=== PATIENT | male | born 1965 | race Caucasian/White ===

== ENCOUNTER 2022-09-16 06:38 | Observation (INO) ==
--- NOTE | 2022-09-16 08:12 | History & Physical Bridge Note ---
Date of Service September 16, 2022 History & Physical Bridge Note I have examined the patient, reviewed the History & Physical and in the interval since the performance of the History & Physical I have noted the following changes of clinical significance: no changes noted
--- NOTE | 2022-09-16 08:12 | Pre Anesthesia Assessment ---
Date of Service September 16, 2022 Pre Sedation Assessment Vital Signs Temp Pulse Resp BP Pulse Ox O2 Del Method 09/16/22 07:11 98.2 F 58 L 16 128/90 94 Room Air Cardiovascular RRR, no murmur, no edema Respiratory normal respiratory effort, lungs clear to auscultation Pre-Sedation Airway Assessment Smoking Status: Former smoker Hx Sleep Apnea: No Short, Thick Neck: No Thyromental Distance: > or= 3.5 Finger Breadths Oral Cavity: + Dental Abnormalities Mallampati Class: III ASA: ASA3 NPO Status Date of Last Intake of Fluids: 09/16/22 Time of Last Intake of Fluids: 20:00 Date of Last Intake of Solid Food: 09/15/22 Time of Last Intake of Solid Foods: 20:00 Procedure Planning Contraindications for Sedation: none Current Medications Reviewed: Yes Notes The planned sedation has been discussed with the patient. Informed Consent was obtained. I have identified the patient, determined the appropriateness of sedation and have assessed the patient immediately prior to the procedure. All medicine(s) and interventions are by my order.
[2022-09-16] MEDS ORDERED: MIDAZOLAM HCL 1 MG/ML 2ML VIAL ONE (08:51)
[2022-09-16] MEDS ORDERED: HEPARIN (PORCINE) 1000 UNIT/ML 10 ML (CATH LAB USE ONLY) ONE (08:51)
[2022-09-16] MEDS ORDERED: niCARdipine HCL INJ 2.5 MG/ML 10 ML AMP ONE (08:51)
[2022-09-16] MEDS ORDERED: fentaNYL citrate PF 100 MCG/2 ML VIAL ONE ×2 (08:51→10:18)
[2022-09-16] MEDS ORDERED: NITROGLYCERIN/D5W 100MCG/ML 20ML SYR ONE (08:52)
[2022-09-16] MEDS ORDERED: ASPIRIN 81 MG CHEW ONE (08:54)
[2022-09-16] MEDS ORDERED: EPTIFIBATIDE 2 MG/ML 10 ML VIAL (CATH LAB USE ONLY) IV ONE (09:50)
[2022-09-16] MEDS ORDERED: LIDOCAINE 1%/EPINEPHRINE 1:100,000 20 ML VIAL ONE (10:18)
[2022-09-16] MEDS ORDERED: CLOPIDOGREL BISULFATE 300 MG TAB ONE (10:19)
[2022-09-16] MEDS: CLOPIDOGREL BISULFATE 300 MG TAB ONE ×2 (10:20→10:21)
[2022-09-16] MEDS ORDERED: NITROGLYCERIN SL 0.4 MG/TAB TAB SL PRN (10:40)
[2022-09-16] MEDS ORDERED: ACETAMINOPHEN 325 MG TAB PO PRN (10:40)
--- NOTE | 2022-09-16 10:40 | Post Anesthesia Assessment ---
Date of Service September 16, 2022 Post Sedation Assessment Vital Signs Temp Pulse Resp BP Pulse Ox O2 Del Method 09/16/22 07:11 98.2 F 58 L 16 128/90 94 Room Air Recovery Score Activity: Moves 4 extremities Respiration: Deep Breath/Cough Circulation: +/-20% PreAnes Value Consciousness: Fully Awake Oxygen Saturation: O2 needed for >90% Discharge Sedation Level of Care: Fast Track Phase II Post Sedation Plan On clinical assessment, the patient appears to have tolerated the sedation without complications. Patient is recovering as anticipated. Patient will continue to be monitored by nursing and may be discharged when sedation discharge criteria are met per below protocol. Upon Completions of procedure up to 15 minutes continue every 5 minute vital signs and the P.A.R. score; then discharge to a Phase I or Fast Track to Phase II per the following guidelines: * Discharge Patient to appropriate Phase II area if PAR is 8 or greater or return to pre- procedure baseline. The post - procedure orders will be as directed. * If PAR score is less than 8 or not return to pre-procedure baseline then patient will follow Phase I monitoring till PAR is reached for Phase II. The Phase I may be done in procedure room or may call to secure a Phase I area. * If naloxone or flumazenil are used for reversal, hold in Phase I for continued monitoring from when last reversal dose was given for a minimum of 60 minutes or longer pending the nurse and/or physician discretion of patient condition before discharge to Phase II. Please call the Sedation Physician to re-evaluate and complete post-note for discharge to Phase II area. Do NOT discharge from procedure sedation or Phase 1 until post- sedation evaluation note is complete by procedure /sedation MD Sedation Discharge Instructions to be given to the patient at discharge to home.
[2022-09-16] MEDS ORDERED: SODIUM CHLORIDE 0.9% 1000ML 1,000 ML IV SCH (10:45)
--- NOTE | 2022-09-16 10:51 | Post Operative Brief Note ---
Cardiology Brief Post Op Date of Surgery September 16, 2022 Pre & Post Diagnosis CAD, angina Procedure coronary/bypass angiography [facility] PCI to SVG to OM Reed Cleaner Boyd Cruz MD Design Engineering Intern Deibler Estimated Blood Loss 20 Findings See Below Chronic occlusion ostial LAD, ostial LCx and mid RCA. Patent BANDA to LAD with collaterals to PDA. SVG to OM patent with 80% mid graft stenosis. OM with collaterals to RPLB. SVG to RCA occluded. PCI to SVG to OM with 4.0 x28 Xience Anesthesia Type RN Sedation Complications none Disposition Disposition: PCU
[2022-09-16] MEDS: CITALOPRAM 40 MG TAB PO SCH (14:36)
--- NOTE | 2022-09-16 14:55 | Cardiac Catheterization ---
[facility] Data: Banana Ripening Room Supervisor Cardiac Status Clinical evaluation leading to the procedure CAD Presenation: Stable angina Anginal Classification: CCS III Diagnostic Physicians Name: Boyd Cruz MD Closure Device Recommendations: PCI without planned CABG Cardiac Cath Procedure Full Procedure Date September 16, 2022 Pre-Procedure Diagnosis Pre-Procedure Diagnosis: Angina AUC Score AUC Score: 7 Post-Procedure Diagnosis Post-Procedure Diagnosis: Severe CAD and Successful PCI Procedure(s) Performed Procedure(s) Performed: Coronary Angiography, Left Heart Cath, Drug Eluting Stent, Ultrasound Guided Vascular Access, Bypass Graft Angiography and Femoral Artery Angiography Folder Stitcher Operator Boyd Cruz MD Hedis Coordinator(s) Deibler Estimated Blood Loss Estimated Blood Loss: 15 Medication(s) Medication(s): Clopidogrel, Fentanyl, Heparin, Integrilin, Lidocaine 1%, Nicardipine, Nitroglycerin and Versed Summary of Findings Indication: Accelerating angina. History of coronary artery disease post remote three-vessel CABG (BANDA to LAD, SVG to RCA, SVG to OM). Access: 6 Fr left radial artery, 6 Fr right common femoral artery under ultrasound guidance (unable to cannulate SVG to RCA via left wrist) Catheters: JL 3.5, MPA, JR4, UMER. JR4 guide Findings: LM -heavily calcified, diffuse severe disease before subtotal distal occlusion prior to small ramus. LAD -chronic 100% ostial occlusion Circumflex -chronic 100% ostial occlusion RCA -dominant, medium caliber, calcified, 50% ostial, diffuse proximal to mid disease prior to 100% chronic total occlusion after acute marginal. LVEDP -16 BANDA to LADwidely patent. Mid to distal LAD after anastomosis without significant disease and retrofills PDA/distal RCA via [id number] collaterals. SVG to OMpatent with 80% mid graft stenosis. Bifurcating OM without significant disease after anastomosis. Gives off faint [id number] collaterals to right PLB. SVG to RCAoccluded -- PCI of SVG to OM-- Antithrombotic therapy: Heparin, IC Integrilin, clopidogrel Procedure: SVG to OM cannulated with JR4 guide Pre-procedure flow YISSEL 3 Filter wire passed across lesion into distal graft and filter deployed IC vasodilators and IC Integrilin administered Attempt made to directly stent but unable to pass stent across mid graft stenosis With the aid of a guide liner mid graft stenosis dilated with 2.5 balloon Dilated lesion stented with 4.0 x 28 mm Xience drug-eluting stent Additional IC vasodilators administered Post procedure YISSEL 3 flow, stent well expanded with minimal residual stenosis and no apparent cardiac complications. Arterial Closure: TR band, StarClose Summary: 1. Severe chronic multivessel coronary artery disease -Subtotally occluded distal left main 100% ostial LAD 100% ostial circumflex 100% mid RCA 2. Widely patent BANDA to LAD. LAD gives [id number] collaterals to RCA. 3. Occluded SVG to RCA 4. 80% mid graft stenosis SVG to OM. Gives off faint collaterals to right PLB 5. Normal intracardiac filling pressure 6. Successful PCI of SVG to OM with single drug-eluting stent (4.0 x 28 mm Xience). Recommendations: To PCU for continued monitoring Loaded with clopidogrel 600 mg in Banana Ripening Room Supervisor Continue dual-antiplatelet therapy for at least 6 months Continue statin, and ASCVD risk factor modification Consult cardiac Rehab Wean antianginal therapy as able. Hemodynamics Rest Ao:: 116/76/93 Final Ao: 113/78/92 LV: -- Recommendations Recommendations: PCI without planned CABG Specimens Specimens: None Radiation Exposure (mGy) 3129 Contrast (mls) 140 Anesthesia Moderate 9890-4711 Procedural Complication(s) None Disposition PCU I attest to the content of the Intraoperative Record and any orders documented therein. Any exceptions are noted below. [facility] [place] Procedure Codes Cardiac Catheterization Procedure 1: Cardiovascular Cath Procedures: 50712 Coronaries & LHC (+/-LV) & Grafts/IM (arterial & venous) Therapeutic Services & Ancillary Procedure 1: Cardiovascular Tx and Anc Procedures: 67241 Ultrasonic Guidance Vascular Access Moderate Sedation Procedure 1: Sedation/Anesthesia: 15523 Mod Sedation by the same physician;Init15 Min Child Age 5 & Up Procedure 3: Sedation/Anesthesia: 95984 Mod Sedation by the same physician; Ea [id number] Minutes Stenting Procedure 1: Cardiovascular Stent Procedures: 75167 Perc tranluminal revascularization of or throughout CABG PG Care Time/CCT Total # of Minutes Spent Total Time Spent with Patient: Total time spent is greater than 50% in coordination of care (as documented) at patient's floor/unit and/or counseling patient:
--- NOTE | 2022-09-16 15:35 | Electrocardiogram Report ---
Test Reason : Blood Pressure : / mmHG Vent. Rate : 063 BPM Atrial Rate : 063 BPM P-R Int : 204 ms QRS Dur : 088 ms QT Int : 460 ms P-R-T Axes : 036 -12 018 degrees QTc Int : 470 ms Normal sinus rhythm Inferior infarct (cited on or before 22-AUG-2022) Abnormal ECG When compared with ECG of 22-AUG-2022 15:35, T wave inversion no longer evident in Anterior leads Confirmed by Anastacio Acosta ([id number]) on 09/16/2022 3:34:26 PM Referred By: Simón Jones Confirmed By:Anastacio Acosta
[2022-09-16] MEDS ORDERED: ATORVASTATIN 20 MG TAB PO SCH (21:00)
[2022-09-16] MEDS: busPIRone 5 MG TAB PO SCH (21:21)
[2022-09-17] MEDS: busPIRone 5 MG TAB PO SCH (08:22)
[2022-09-17] MEDS ORDERED: METOPROLOL SUCC 50MG EXT REL TAB PO SCH (09:00)
[2022-09-17] MEDS ORDERED: CLOPIDOGREL BISULFATE 75 MG TAB PO SCH (09:00)
[2022-09-17] MEDS ORDERED: amLODIPine BESYLATE 5 MG TAB PO SCH (09:00)
[2022-09-17] MEDS ORDERED: ASPIRIN 81 MG ECTAB PO SCH (09:00)
[2022-09-17] MEDS ORDERED: ISOSORBIDE MONO EXTENDED REL 30 MG TABCR PO SCH (09:00)
[2022-09-17] MEDS: CITALOPRAM 40 MG TAB PO SCH (12:19)
== END 2022-09-17 14:09 | disposition home or self-care (01) ==
LOC: 2S 06:38 → CC 06:38